=== PATIENT | female | born 2000 | race Caucasian/White ===

== ENCOUNTER 2023-08-04 14:25 | Emergency (ER) | payer OTHER ==
[~2023-08-04] VITALS: Ht 170.2 cm; Wt 68.2 kg
[2023-08-04 14:30] VITALS: TEMP 98.1
[2023-08-04 15:52] VITALS: BP 131/80; PULSE 93
== END 2023-08-04 15:53 | disposition home or self-care (01) ==
LOC: COL.ER 14:25
DX: S93.401A Sprain of unspecified ligament of right ankle, initial encounter (principal); X50.1XXA Overexertion from prolonged static or awkward postures, initial encounter

== ENCOUNTER 2024-06-23 22:06 | Emergency (ER) | payer OTHER ==
[~2024-06-23] VITALS: Ht 170.2 cm; Wt 72.7 kg
[2024-06-23 22:10] VITALS: TEMP 97.7
[2024-06-23] MEDS ORDERED: NS 1,000 ML IV ONE (23:00)
[2024-06-23] MEDS ORDERED: Ketorolac 30 MG/ML VIAL IV ONE (23:00)
[2024-06-23 23:16] LABS: COLLECTION METHOD CLEAN CATCH
[2024-06-23 23:22] LABS: BASO % 0.5 % (0.0-2.0); EOS # 0.2 K/mm3 (0.0-0.7); EOS % 3.7 % (0.0-4.0); GRAN # 2.8 K/mm3 (1.4-6.5); GRAN % 49.6 % (42.2-75.2); HEMATOCRIT 43.7 % (37.0-47.0); HEMOGLOBIN 14.6 g/dl (12.5-16.0); LYMPH % 34.8 % (20.0-51.0); MEAN CELL VOLUME 86 fl (80.0-100.0); MEAN CORPUSCULAR HEMOGLOBIN 29 pg (27-31); MEAN CORPUSCULAR HGB CONC 33 g/dl (33.0-37.0); MEAN PLATELET VOLUME 11.4 fl (7.4-10.4); MONO # 0.6 K/mm3 (0.1-0.6); MONO % 11.2 % (1.7-9.3); PLATELET COUNT 255 K/mm3 (130-400); RED BLOOD COUNT 5.11 M/mm3 (4.10-5.30)
[2024-06-23 23:26] LABS: URINE APPEARANCE CLEAR (CLEAR/HAZY); URINE BLOOD NEGATIVE (NEGATIVE); URINE COLOR YELLOW (YELLOW); URINE GLUCOSE NEGATIVE (NEGATIVE); URINE KETONE TRACE (NEGATIVE); URINE NITRATE NEGATIVE (NEGATIVE); URINE PROTEIN(semi-quant) 1+ (NEGATIVE)
[2024-06-23 23:32] LABS: MONOSCREEN NEGATIVE
[2024-06-24 00:01] LABS: ALBUMIN 3.6 g/dL (3.5-5.0); BILIRUBIN,TOTAL 0.3 mg/dL (0.2-1.2); CALCIUM 9.6 mg/dL (8.4-10.2); CREATININE, serum 0.76 mg/dL (0.57-1.11); POTASSIUM 3.6 mEq/L (3.5-4.5); TOTAL PROTEIN 7.8 g/dl (6.2-8.1)
[2024-06-24] MEDS ORDERED: PEN-VEE K500 MG PO (00:47)
[2024-06-24 01:00] VITALS: BP 130/90; PULSE 73
[2024-06-24] MEDS ORDERED: Penicillin V-K 250 MG TAB PO ONE (01:00)
== END 2024-06-24 01:00 | disposition home or self-care (01) ==
LOC: COL.ER 22:06
PROVIDERS: Emergency Medicine
DX: J02.0 Streptococcal pharyngitis (principal); F17.290 Nicotine dependence, other tobacco product, uncomplicated
CPT/HCPCS: J1885; J7030

== ENCOUNTER 2024-07-20 16:07 | Emergency (ER) | payer OTHER ==
[~2024-07-20] VITALS: Ht 170.2 cm; Wt 72.7 kg
[~2024-07-20 16:07] MED LIST: PEN-VEE K500 MG PO
[2024-07-20 16:41] VITALS: TEMP 98.3
[2024-07-20] MEDS ORDERED: Ketorolac 30 MG/ML VIAL IV ONE (18:30)
[2024-07-20] MEDS ORDERED: NS 1,000 ML IV ONE (18:30)
[2024-07-20 18:50] LABS: COLLECTION METHOD CLEAN CATCH
[2024-07-20 18:53] LABS: BASO % 0.4 % (0.0-2.0); EOS # 0.2 K/mm3 (0.0-0.7); EOS % 2.5 % (0.0-4.0); GRAN % 54.5 % (42.2-75.2); HEMATOCRIT 43.8 % (37.0-47.0); HEMOGLOBIN 14.4 g/dl (12.5-16.0); LYMPH # 2.6 K/mm3 (1.2-3.4); LYMPH % 35.1 % (20.0-51.0); MEAN CELL VOLUME 88 fl (80.0-100.0); MEAN CORPUSCULAR HEMOGLOBIN 29 pg (27-31); MEAN CORPUSCULAR HGB CONC 33 g/dl (33.0-37.0); MEAN PLATELET VOLUME 11.7 fl (7.4-10.4); MONO # 0.5 K/mm3 (0.1-0.6); MONO % 7.4 % (1.7-9.3); PLATELET COUNT 235 K/mm3 (130-400); REDCELL DISTRIBUTION WIDTH-CV 13.2 % (11.5-14.5)
[2024-07-20 18:56] LABS: PH 5.5 (5.0-8.5); URINE APPEARANCE CLEAR (CLEAR/HAZY); URINE BLOOD 2+ (NEGATIVE); URINE COLOR YELLOW (YELLOW); URINE GLUCOSE NEGATIVE (NEGATIVE); URINE KETONE NEGATIVE (NEGATIVE); URINE NITRATE NEGATIVE (NEGATIVE); URINE PROTEIN(semi-quant) NEGATIVE (NEGATIVE); URINE UROBILINOGEN 0.2 E.U/dL (0.2-1.0)
[2024-07-20 19:13] LABS: ALBUMIN 3.8 g/dL (3.5-5.0); BILIRUBIN,TOTAL 0.5 mg/dL (0.2-1.2); C-REACTIVE PROTEIN 0.84 mg/dL (0.00-0.50); CALCIUM 9.8 mg/dL (8.4-10.2); CREATININE, serum 0.72 mg/dL (0.57-1.11); TOTAL PROTEIN 7.9 g/dl (6.2-8.1)
[2024-07-20] MEDS ORDERED: Iohexol 300 - 100 ML VIAL IV ONE (19:19)
[2024-07-20] MEDS ORDERED: NS 100 ML IV ONE (19:20)
[2024-07-20 20:42] VITALS: BP 126/82; PULSE 70
== END 2024-07-20 20:47 | disposition home or self-care (01) ==
LOC: COL.ER 16:07
PROVIDERS: Emergency Medicine
DX: N94.6 Dysmenorrhea, unspecified (principal); Z87.42 Personal history of other diseases of the female genital tract
CPT/HCPCS: J1885; J7030; Q9967